=== PATIENT | female | born 1965 | race Caucasian/White ===

== ENCOUNTER → 2019-08-22 17:07 | Outpatient (CLI) | payer BC, SELFPAY ==
--- NOTE | ~2019-08-22 | MM_ITS ---
EXAMINATION: MM screening [facility] BI w marco HISTORY: Screening mammogram TECHNIQUE: Craniocaudal and mediolateral oblique 3-D tomosynthesis images were obtained and synthetic 2-D images were generated. CAD analysis was submitted and interpreted. COMPARISON: Comparison to multiple prior studies sequentially, with oldest reviewed study dated 10/2009. BREAST PARENCHYMAL COMPOSITION: There are scattered areas of fibroglandular density. FINDINGS: There is no evidence of suspicious mass, calcification, or architectural distortion to sugg est malignancy in either breast. There has been no suspicious interval change. IMPRESSION: 1. No mammographic evidence of malignancy. 2. Recommend routine screening mammography in one year. BI-RADS Category 1: Negative Reviewed, dictated and finalized at location A.
== END ==
PROVIDERS: PCP Physician Assistant; Visit Provider Nurse Practitioner Obstetrics & Gynecology
DX: Z12.31 Encounter for screening mammogram for malignant neoplasm of breast (principal)
CPT/HCPCS: 77063; 77067

== ENCOUNTER 2020-05-15 12:31 | Emergency (ER) | payer BC, SELFPAY ==
[2020-05-15 12:37] VITALS: BP 138/77; PULSE 81; RESP 16; TEMP 36.8; O2SAT 99
--- NOTE | 2020-05-15 13:34 | ED.SKABFB ---
HPI - Skin/Abscess/Foreign Bdy General Chief complaint: Skin/Abscess/Foreign Body Stated complaint: splinter in right index finger Source: patient and RN notes reviewed Mode of arrival: ambulatory Limitations: no limitations History of Present Illness HPI narrative: This is a 55-year-old white female that presented to urgent care today with a splinter to her right fourth finger. According to patient she was painting today and a piece of wood lodged in her finger. Patient was very emotional and anxious during this visit. I was able remove a small piece wood with forceps approximately 0.5 there was an incision approximately 1 inch in size to check for remaining wood pieces, none found. No neurovascular deficiency noted. Patient may able to move digits, sensation present, Patient did receive 4 stitches. The patient denies SOB, CP, palpitation, extremity numbness, lightheadedness, dizziness, constipation, diarrhea, chills, or fever. Related Data Home Medications Medication Instructions Recorded Confirmed alprazolam 0.5 mg PO DIRECTED 05/15/20 05/15/20 citalopram 20 mg PO DAILY 05/15/20 05/15/20 gabapentin 300 mg PO DIRECTED 05/15/20 05/15/20 levothyroxine [Synthroid] 75 mcg PO DAILY 05/15/20 05/15/20 meloxicam 15 mg PO DAILY 05/15/20 05/15/20 Allergies Allergy/AdvReac Type Severity Reaction Status Date / Time NSAIDS (Non-Steroidal Allergy Severe Unverified 03/03/15 11:20 Anti-Inflamma Penicillins Allergy Unknown Verified 04/24/12 10:57 Review of Systems Review of Systems: All systems reviewed & are unremarkable except as noted in HPI and below (10 point system review) [facility] Social History Social History Alcohol intake: current Exam Narrative: Exam Narrative: GENERAL: This is a well-nourished, well-developed patient, in no apparent distress. HEAD: normocephalic, atraumatic. EYES: PERRL. Sclera clear/white. Vision is grossly intact. EARS: External ears normal, auditory canals clear and without drainage, TMs normal without perforation. Hearing grossly intact. NOSE: External nose normal with no obvious nasal discharge, nares without redness, no rhinorrhea. THROAT: Mucous membranes moist, posterior pharynx clear. NECK: Neck supple, non-tender without lymphadenopathy, masses or thyromegaly. CARDIOVASCULAR: Regular rate and rhythm without murmurs, gallops, or rubs. RESPIRATORY: Clear to auscultation. Breath sounds equal bilaterally. No wheezes, rales, or rhonchi. GASTROINTESTINAL: Abdomen soft, non-tender, nondistended. Bowel sounds are active. No hepato-splenomegaly, or palpable masses. No guarding. SKIN: Splinter in today right hand fourth digit, no neurovascular deficiency, able to move digits, sensation present. NEURO: awake, alert, and oriented to person, place and time. There were no obvious focal neurologic abnormalities. Steady gait EXTREMITIES: Normal range of motion. No edema. No calf tenderness. Negative Homans sign bilaterally. BACK: Nontender without deformity or crepitance. No flank tenderness. Course Vital Signs Vital signs: Vital Signs Temperature 98.3 F 05/15/20 12:37 Pulse Rate 81 05/15/20 12:37 Respiratory Rate 16 05/15/20 12:37 Blood Pressure 138/77 05/15/20 12:37 Pulse Oximetry 99 05/15/20 12:37 Temperature 98.3 F 05/15/20 12:37 Pulse Rate 81 05/15/20 12:37 Respiratory Rate 16 05/15/20 12:37 Blood Pressure 138/77 05/15/20 12:37 Pulse Oximetry 99 05/15/20 12:37 Procedures Foreign Body Removal Foreign Body #1: Foreign Body Removal Date: 05/15/20 Foreign Body Removal Time: 13:44 Time Out Performed: no Site: right and hand (Fourth finger) Description of foreign body: other (Would) Sedation/Analgesia: none Technique: removal with forceps and incision made to facilitate removal Complications: none Post-procedure exam: awake, alert
== END 2020-05-15 13:30 | disposition home or self-care (01) ==
PROVIDERS: Emergency Provider Nurse Practitioner
DX: S61.244A Puncture wound with foreign body of right ring finger without damage to nail, initial encounter (principal); W45.8XXA Other foreign body or object entering through skin, initial encounter
CPT/HCPCS: 10120; 99213; G0463

== ENCOUNTER 2021-07-10 00:39 | Day surgery (SDC) | payer BC, SELFPAY ==
[2021-06-29 14:28] VITALS: BMI 37.8
--- NOTE | 2021-07-09 15:48 | WPDANESEPP ---
Anes - Eval Pre Procedure Procedure: Operation Date: 07/10/21 10:30 Proposed Procedures p Screening Colonoscopy - Mamadou Vazquez MD Date/Time: 07/09/21 15:48 Pre Op Diagnosis: neoplasm screening Patient Data Age: 56 Gender: F Height: 1.63 m Weight: 100 kg Allergies Allergy/AdvReac Type Severity Reaction Status Date / Time Penicillins Allergy Unknown Unknown Verified 02/13/21 11:26 Home Medications Medication Instructions Recorded Confirmed Type citalopram 20 mg PO DAILY 05/15/20 06/29/21 History levothyroxine [Synthroid] 75 mcg PO DAILY 05/15/20 06/29/21 History meloxicam 15 mg PO DAILY 05/15/20 06/29/21 History alprazolam 0.5 mg tablet 0.5 mg PO TID PRN tablet 08/25/20 06/29/21 History gabapentin 300 mg capsule 300 mg PO TID cap 08/25/20 06/29/21 History ijocvrvvctsx-dqw-avqz-FA-vit K 1 tablet PO DAILY 06/29/21 06/29/21 History [Adults Multivitamin] omega 5-die-pjt-fish oil [Fish Oil] 1 cap PO BID 06/29/21 06/29/21 History Patient hx anesthesia problems: post op nausea/vomiting Family hx anesthesia problems: none Results Review: All pre-operative results and documents have been reviewed as part of the pre-operative evaluation. [facility] Past Medical History Medical History Depression GERD (gastroesophageal reflux disease) History of tumor left foot arch tumor removal - 2017 right lower leg tumor removal - 2019 Hypothyroid Plantar fasciitis of left foot 2017 Surgical History Surgical History History of appendectomy 2008 History of bunionectomy 1982 History of section 1984, 1990 History of cholecystectomy 2009 History of elbow surgery left elbow ulnar nerve transposition 2007 right elbow ulnar nerve transposition 2007 & 2008 History of hernia repair 2003 History of tubal ligation 1998 Hx of laparoscopic gastric banding 2013 Social History Social History Years smoked: 20 Smoking status: Former smoker Alcohol intake: current Substance use: never Substance use type: does not use Exam Day of Procedure 02/03/22 15:48
[2021-07-10 09:15] VITALS: BP 150/100; PULSE 83; RESP 18; TEMP 36.1; O2SAT 99; BMI 37.0
--- NOTE | 2021-07-10 09:34 | WPDANESEFPP ---
Anes - Eval Final PreProcedure Day of Procedure 07/10/21 09:34 Patient weight: obese Heart: regular rate and rhythm Lungs: clear to auscultation Airway: Mallampati scale class II Neurological: alert and oriented Last oral intake: >/= 8 hours ASA classification: II Emergent: no Anesthetic plan: proceed Anesthesia type and monitoring: general GIVS and standard monitoring Results Review: All pre-operative results and documents have been reviewed as part of the pre-operative evaluation. Informed Consent: The patient's anesthetic plan and its attendant risks and benefits were discussed with the patient/family/POA. Questions were solicited and answers provided to the satisfaction of the patient/family/POA.
[2021-07-10] MEDS: LACTATED RINGERS 1,000 ML 150 ML IV CONT (09:37)
--- NOTE | 2021-07-10 10:17 | PM.HPGS ---
History of Present Illness History of Present Illness Consent: Risks, benefits, and alternatives have been discussed and questions answered. Patient agrees to proceed with procedure. Chief complaint: neoplasm screening Narrative: Lucila Rendon is a 56 year old female referred for colon cancer screening. Review of Systems Review of Systems: All systems reviewed & are unremarkable except as noted in HPI and below PMFSH Past Medical History Medical History Depression GERD (gastroesophageal reflux disease) History of tumor left foot arch tumor removal - 2017 right lower leg tumor removal - 2019 Hypothyroid Plantar fasciitis of left foot 2017 Surgical History Surgical History History of appendectomy 2008 History of bunionectomy 1982 History of section 1983, 1990 History of cholecystectomy 2009 History of elbow surgery left elbow ulnar nerve transposition 2007 right elbow ulnar nerve transposition 2006 & 2007 History of hernia repair 2002 History of tubal ligation 1998 Hx of laparoscopic gastric banding 2013 Social History Social History Years smoked: 20 Smoking status: Former smoker Alcohol intake: current Substance use: never Substance use type: does not use Meds Home Medications and Allergies Home Medications Medication Instructions Recorded Confirmed Type citalopram 20 mg PO DAILY 05/15/20 06/29/21 History levothyroxine [Synthroid] 75 mcg PO DAILY 05/15/20 06/29/21 History meloxicam 15 mg PO DAILY 05/15/20 06/29/21 History alprazolam 0.5 mg tablet 0.5 mg PO TID PRN tablet 08/25/20 06/29/21 History gabapentin 300 mg capsule 300 mg PO TID cap 08/25/20 06/29/21 History xdjuunzfbjsr-ceg-rxty-FA-vit K 1 tablet PO DAILY 06/29/21 06/29/21 History [Adults Multivitamin] omega 2-uif-qxk-fish oil [Fish Oil] 1 cap PO BID 06/29/21 06/29/21 History Allergies Allergy/AdvReac Type Severity Reaction Status Date / Time Penicillins Allergy Unknown Unknown Verified 07/10/21 09:25 Vital Signs Vital Signs - 24 hr 07/10/21 09:15 Temperature 36.1 C L Pulse Rate 83 Respiratory Rate 18 Blood Pressure 150/100 H Pulse Oximetry 99 Exam Resp: Auscultation: clear to auscultation bilaterally Cardio: Rate: regular rate Rhythm: regular rhythm GI: GI Palp: Yes Soft to palpation and No Tenderness to palpation present (GI) Assessment and Plan Assessment and plan (1) Colon cancer screening: Code(s): Z12.11 - Encounter for screening for malignant neoplasm of colon Status: Acute Assessment and Plan: Colonoscopy with possible biopsy or polypectomy or cautery or injection of substances.
[2021-07-10 10:43] VITALS: BP 128/81; PULSE 67; RESP 19; O2SAT 98
[2021-07-10 10:53] VITALS: BP 125/80; PULSE 62; RESP 15; O2SAT 98
[2021-07-10 11:03] VITALS: BP 147/85; PULSE 60; RESP 17; O2SAT 100
== END 2021-07-10 11:04 | disposition home or self-care (01) ==
PROVIDERS: PCP Physician Assistant; Visit Provider Internal Medicine Gastroenterology
PROC: 0DJD8ZZ Inspection of Lower Intestinal Tract, Via Natural or Artificial Opening Endoscopic (ICD-10-PCS; CPT 45378; principal; 2021-07-10 10:30)
DX: Z12.11 Encounter for screening for malignant neoplasm of colon (principal); E03.9 Hypothyroidism, unspecified; K21.9 Gastro-esophageal reflux disease without esophagitis; F32.9 Major depressive disorder, single episode, unspecified; Z98.84 Bariatric surgery status; Z87.891 Personal history of nicotine dependence
CPT/HCPCS: 45378; J2704; J7120

== ENCOUNTER → 2021-09-03 16:04 | Outpatient (CLI) | payer BC, SELFPAY ==
--- NOTE | ~2021-09-03 | MM_ITS ---
EXAMINATION: MM screening [facility] w [facility] HISTORY: Screening mammogram TECHNIQUE: Craniocaudal and mediolateral oblique 3-D tomosynthesis images were obtained and synthetic 2-D images were generated. CAD analysis was submitted and interpreted. COMPARISON: 08/22/2019, 08/23/2017, 05/14/2015 bilateral screening mammogram examinations BREAST PARENCHYMAL COMPOSITION: The breasts are almost entirely fatty. FINDINGS: Subtle microcalcifications are noted anteriorly in the mid to lower outer right breast; maury gnostic right mammogram with magnification views is recommended. Otherwise there is no evidence of suspicious mass, calcification, or architectural distortion to sugg est malignancy in either breast. There has been no other suspicious interval change. IMPRESSION: 1. Subtle grouped microcalcifications in the anterior mid to lower outer right breast 2. Diagnostic right mammogram with magnification views is recommended. BI-RADS Category 0: Incomplete: Needs additional imaging evaluation. Reviewed, dictated and finalized at location A.
== END ==
PROVIDERS: Visit Provider Physician Assistant
DX: Z12.31 Encounter for screening mammogram for malignant neoplasm of breast (principal); R92.8 Other abnormal and inconclusive findings on diagnostic imaging of breast
CPT/HCPCS: 77063; 77067

== ENCOUNTER 2021-09-23 07:38 | Outpatient (CLI) | payer BC, SELFPAY ==
--- NOTE | 2021-09-26 02:03 | WPDHOMESLEEP ---
Sleep Study - Home Unattended Date of Study: 09/23/21 Ordering Provider: Rita Franco, JANE Interpreting Provider: Kriss Casillas, DO Home Sleep Study Type: Apnea Link Air Height: 1.63 m Weight: 94.347 kg Body Mass Index: 35.6 Neck Circumference (inches): 14.75 [place]: 12 Reason for Sleep Study Loud snoring, witnessed apneas, multiple nighttime awakenings Sleep History The patient is a 56-year-old with anxiety, depression, hypothyroidism, chronic back pain and history of tobacco use that had a sleep study ordered by her primary care for evaluation of sleep apnea. The patient rarely awakens from sleep short of breath. She occasionally awakens at night with heartburn, belching or cough. She constantly snores loud enough that others complain. She occasionally has trouble sleeping when she has a cold. She frequently wakes up gasping for air throughout the night. She frequently has breathing problems at night observed by herself or others. She rarely sweats excessively at night. She denies noticing any heart palpitations or irregular heartbeats during the night. She occasionally falls asleep during the day but never while driving. She rarely experiences loss of muscle tone when extremely emotional. She occasionally has trouble at school or work due to sleepiness. She rarely experiences vivid dream like scenes upon awakening or falling asleep. She denies sleep paralysis. She rarely has nightmares. She occasionally has thoughts racing through her mind. She rarely feels sad or depressed. She occasionally has anxiety. She rarely notices parts of her body jerks. She denies kicking during the night. She rarely experiences crawling aching feelings in her legs but occasionally has leg pain during the night. She frequently grinds her teeth during sleep and occasionally awakens with morning jaw pain. He denies being bothered by pain during the day but is rarely awakened by pain during the night. She occasionally wakes up feeling stiff in the morning. She occasionally wakes up with a sore or achy muscles. She occasionally wakes up with pain in the neck, spine and other joints. She goes to bed at 10:00 p.m. on both weekdays and weekends. It takes her 30 minutes to fall asleep. She wakes up twice throughout the night to use the restroom. It takes her 30 minutes to fall back asleep. She wakes up at 7:30 a.m. on the weekdays and between 8:30 a.m. and 9:00 a.m. on the weekends. He typically gets 7-8 hours of sleep per night. She will stay in bed for 20 minutes after waking up in the morning. She currently lives with her . She does not consume any caffeinated beverages within 2 hours of bedtime. She does not engage in physical exercise before bedtime. She will watch television before falling asleep. She will take naps in the afternoon or evening but they are not refreshing. She does not consume any caffeinated beverages throughout the day. She will drink 2-3 alcoholic beverages per week. She quit smoking cigarettes 22 years ago. She denies recreational drug use. [facility] Past Medical History Medical History Depression GERD (gastroesophageal reflux disease) History of tumor left foot arch tumor removal - 2017 right lower leg tumor removal - 2019 Hypothyroid Plantar fasciitis of left foot 2017 Surgical History Surgical History History of appendectomy 2008 History of bunionectomy 1982 History of section 1984, 1991 History of cholecystectomy 2009 History of elbow surgery left elbow ulnar nerve transposition 2007 right elbow ulnar nerve transposition 2007 & 2008 History of hernia repair 2003 History of tubal ligation 1998 Hx of laparoscopic gastric banding 2013 Social History Social History Years smoked: 20 Smoking statu
[2021-09-26 02:14] VITALS: BMI 35.6
== END 2021-09-24 12:27 | disposition home or self-care (01) ==
LOC: ANHCSM 07:45
PROVIDERS: PCP Physician Assistant; Visit Provider Physician Assistant
DX: G47.33 Obstructive sleep apnea (adult) (pediatric) (principal)
CPT/HCPCS: 95806

== ENCOUNTER 2022-10-12 08:59 | Outpatient (CLI) | payer BC, SELFPAY ==
--- NOTE | ~2022-10-12 | XR_ITS ---
EXAMINATION: XR UGIAC wo kub DATE: 10/12/2022 09:54 INDICATION: Dysphagia, history of lap band surgery TECHNIQUE: The patient drank thick barium, gas-producing crystals, and thin barium. Conventional supi ne abdomen radiographs and fluoroscopy of the esophagus, stomach, and proximal small bowel were perfo rmed. Fluoroscopy exposure time was 1.8 minutes. The DAP for this procedure was 26.5 Gycm2. COMPARISON: 05/06/2008 FINDINGS: Labor Custodian image demonstrates a gastric lap band with a phi angle of 45 degrees. There is no mas s or stricture of the esophagus. Esophageal motility is normal. There is no hiatal hernia. There was no gastroesophageal reflux with provocative maneuvers. The stomach and proximal small bowel show norm al folding patterns. Cholecystectomy clips are noted. IMPRESSION: 1. Unremarkable upper GI. Reviewed, dictated and finalized at location A. IMPRESSION: 1. Unremarkable upper GI.
== END 2022-10-12 09:00 | disposition home or self-care (01) ==
PROVIDERS: PCP Physician Assistant
DX: R13.10 Dysphagia, unspecified (principal); E66.01 Morbid (severe) obesity due to excess calories; Z98.84 Bariatric surgery status
CPT/HCPCS: 74246